=== PATIENT | male | born 1950 | race Caucasian/White ===

== ENCOUNTER 2025-02-11 10:37 | Outpatient (RCR) | payer MEDICARE, OTHER, SELFPAY | END 2025-08-10 23:59 | disposition home or self-care (01) | LOC: CCIC 10:37 | PROVIDERS: PCP Student in an Organized Health Care Education/Training Program; Visit Provider Clinical Nurse Specialist | DX: C61 Malignant neoplasm of prostate (principal); C79.51 Secondary malignant neoplasm of bone; C77.5 Secondary and unspecified malignant neoplasm of intrapelvic lymph nodes | CPT/HCPCS: 72195; 99211 ==

== ENCOUNTER 2025-02-11 10:48 | Outpatient (CLI) | payer MEDICARE, OTHER, SELFPAY | END 2025-02-11 10:49 | disposition home or self-care (01) | LOC: MRI 10:49 | PROVIDERS: PCP Student in an Organized Health Care Education/Training Program; Visit Provider Internal Medicine | DX: C61 Malignant neoplasm of prostate (principal); C79.51 Secondary malignant neoplasm of bone; C77.5 Secondary and unspecified malignant neoplasm of intrapelvic lymph nodes | CPT/HCPCS: 72195 ==